=== PATIENT | female | born 1970 | race Caucasian/White ===

== ENCOUNTER 2017-02-06 13:17 | Emergency (ER) | payer OTHER | END 2017-02-06 14:52 | disposition short-term general hospital (02) | LOC: ER 13:17 | PROC: 3E0234Z Introduction of Serum, Toxoid and Vaccine into Muscle, Percutaneous Approach (ICD-10-PCS; principal; 2017-02-06) | DX: S68.521A Partial traumatic transphalangeal amputation of right thumb, initial encounter (principal); S68.122A Partial traumatic metacarpophalangeal amputation of right middle finger, initial encounter; S68.120A Partial traumatic metacarpophalangeal amputation of right index finger, initial encounter; W27.4XXA Contact with kitchen utensil, initial encounter; Y92.512 Supermarket, store or market as the place of occurrence of the external cause; Y99.0 Civilian activity done for income or pay; Z23 Encounter for immunization | CPT/HCPCS: 73120; 90471; 90715; 96365; 96375; 99070; 99283; 99285-25 ==

== ENCOUNTER 2017-02-07 20:37 | Emergency (ER) | payer OTHER ==
[2017-02-07 21:18] LABS: BASO % 0.2 % (0.1-1.2); EOS % 0.2 % (0.7-5.8); GRAN # 11.4 10_X3_uL (1.6-6.1); GRAN % 76.1 % (34.0-71.1); HEMATOCRIT 39.7 % (34-45); HEMOGLOBIN 13.4 g/dL (11.2-15.7); LYMPH # 2.2 10_X3_uL (1.2-3.7); LYMPH % 14.7 % (19.3-51.7); MEAN CORPUSCULAR HEMOGLOBIN 33.2 pg (27.0-33.0); MEAN CORPUSCULAR HGB CONC 33.8 g/dL (32.0-36.0); MEAN CORPUSCULAR VOLUME 98.3 fL (79-95); MEAN PLATELET VOLUME 10.9 fl (7.5-11.5); MONO # 1.3 10_X3_uL (0.2-0.9); MONO % 8.8 % (4.7-12.5); PLATELET COUNT 193 x10_3/uL (182-369); RED BLOOD COUNT 4.04 x10_6/uL (3.9-5.2)
[2017-02-07 21:33] LABS: ALBUMIN 3.9 gm/dL (3.4-5.0); ALKALINE PHOSPHATASE 59 U/L (50-136); ALT/SGPT 8 U/L (3.5-33.9); AST/SGOT 19 U/L (7.04-26.96); BILIRUBIN,TOTAL 0.37 mg/dL (0.0-1.0); BLOOD UREA NITROGEN 6 mg/dL (7-18); CALCIUM 9.1 mg/dL (8.7-10.7); CARBON DIOXIDE 24 mmol/L (21-32); CREATINE KINASE 443 U/L (21-215); CREATININE 0.5 mg/dL (0.6-1.3); GLUCOSE,RANDOM 130 mg/dL (70-99); POTASSIUM 3.5 mmol/L (3.5-5.1); SODIUM 139 mmol/L (136-145)
== END 2017-02-07 22:25 | disposition home or self-care (01) ==
LOC: ER 20:37
PROVIDERS: Internal Medicine
DX: F41.0 Panic disorder [episodic paroxysmal anxiety] (principal); M79.641 Pain in right hand
CPT/HCPCS: 36415; 80053; 82550; 82553; 85025; 93005; 96374; 99070; 99283-25; 99284

== ENCOUNTER 2017-02-18 12:18 | Emergency (ER) | payer OTHER | END 2017-02-18 12:40 | disposition home or self-care (01) | LOC: ER 12:18 | DX: Z48.01 Encounter for change or removal of surgical wound dressing (principal); S68.521D Partial traumatic transphalangeal amputation of right thumb, subsequent encounter; S68.122D Partial traumatic metacarpophalangeal amputation of right middle finger, subsequent encounter; S68.120D Partial traumatic metacarpophalangeal amputation of right index finger, subsequent encounter; W27.4XXD Contact with kitchen utensil, subsequent encounter; F17.210 Nicotine dependence, cigarettes, uncomplicated | CPT/HCPCS: 99070; 99283 ==